=== PATIENT | male | born 1970 | race Two or more races ===

== ENCOUNTER 2025-03-25 16:02 | Emergency (ER) | payer MEDICAID ==
[~2025-03-25] VITALS: Ht 167.6 cm; Wt 66.0 kg
[2025-03-25 16:08] VITALS: O2SAT 99
[2025-03-25] MEDS ORDERED: IBUP-2028 MT (19:14)
[2025-03-25 19:22] VITALS: BP 149/86; PULSE 69; RESP 18; TEMP 36.7; O2SAT 99
== END 2025-03-25 19:38 | disposition home or self-care (01) ==
LOC: ER 16:31
DX: M25.562 Pain in left knee (principal); I10 Essential (primary) hypertension; Z79.899 Other long term (current) drug therapy; W19.XXXA Unspecified fall, initial encounter; Y93.89 Activity, other specified; Y92.89 Other specified places as the place of occurrence of the external cause; Y99.8 Other external cause status
CPT/HCPCS: 73560; 99283; Z7610